=== PATIENT | male | born 1970 | race Caucasian/White ===

== ENCOUNTER 2019-04-25 17:33 | Emergency (ER) | payer SELFPAY ==
--- NOTE | 2019-04-25 19:25 | ED ---
Complex/Multi-Sys Presentation - HPI Summary HPI Summary: 48 year old M presenting to [facility] complains of watery diarrhea and nausea since yesterday. Denies vomiting. The patient rates the pain 5/10 in severity. Symptoms aggravated by nothing. Symptoms alleviated by nothing. Hx C. diff x2, last time being a couple weeks ago, for which he was given vancomycin. Patient states he recently moved to [place] from [place]. States he was referred to [place] for detox treatment at [facility] for hx ETOH. States he has been in detox treatment for 4 days. States that since he has been being seen at [facility], the skin under his eyes have been irritated and burning. States he hasn't taken his medications for 5 days since moving to [place]. PMHx: seizures. - History Of Current Complaint Chief Complaint: EDNauseaVomitDiarrh Time Seen by Provider: 04/25/19 19:18 Hx Obtained From: Patient Onset/Duration: Lasting Days - 1, Still Present Timing: Constant Severity Currently: Moderate - 5/10 Aggravating Factor(s): Nothing Alleviating Factor(s): Nothing Associated Signs And Symptoms: Negative: Vomiting - Allergies/Home Medications Allergies/Adverse Reactions: Allergies Allergy/AdvReac Type Severity Reaction Status Date / Time levetiracetam [From [facility]] Allergy See Comment Verified 04/25/19 17:47 Penicillins Allergy Unknown Verified 04/25/19 17:47 Reaction Details PMH/Surg Hx/FS Hx/Imm Hx Neurological History: Reports: Hx Seizures Psychiatric History: Reports: Hx Substance Abuse - ETOH - Surgical History Surgery Procedure, Year, and Place: bone Infectious Disease History: Yes Infectious Disease History: Reports: Hx Clostridium Difficile Denies: Traveled Outside the [place] in Last 30 Days - Family History Known Family History: Positive: Other - cancer - Social History Alcohol Use: None Alcohol Amount: in detox at [facility] Substance Use Type: Reports: None Smoking Status (MU): Unknown if Ever Smoked Review of Systems Negative: Fever Positive: Diarrhea, Nausea. Negative: Vomiting All Other Systems Reviewed And Are Negative: Yes Physical Exam - Summary Physical Exam Summary: Appearance: Well-appearing, Well-nourished, lying in bed comfortably Skin: Warm, dry, no obvious rash. He has swelling and irritation of his lower lids, worse on the left. Eyes: sclera anicteric, no conjunctival pallor ENT: mucous membranes moist, pharynx appears normal Neck: Supple, nontender Respiratory: Clear to auscultation, no signs of respiratory distress Cardiovascular: Normal S1, S2. No murmurs. Normal distal pulses in tibial and radial bilaterally. Abdomen: Soft, nontender, normal active bowel sounds present Musculoskeletal: Normal, Strength/ROM Intact Neurological: A&Ox3, awake and alert, mentation is normal, speech is fluent and appropriate Psychiatric: affect is normal, does not appear anxious or depressed Triage Information Reviewed: Yes Vital Signs On Initial Exam: Initial Vitals Temp Pulse Resp BP Pulse Ox 97.8 F 74 18 168/114 97 04/25/19 17:44 04/25/19 17:44 04/25/19 17:44 04/25/19 17:44 04/25/19 17:44 Vital Signs Reviewed: Yes Procedures - Sedation Patient Received Moderate/Deep Sedation with Procedure: No Diagnostics - Vital Signs Vital Signs Temp Pulse Resp BP Pulse Ox 04/25/19 17:44 97.8 F 74 18 168/114 97 - Laboratory Lab Statement: Any lab studies that have been ordered have been reviewed, and results considered in the medical decision making process. Re-Evaluation - Re-Evaluation First Eval Re-Evaluation Time: 20:15 Change: Unchanged Comment: patient requesting gabapentin 600 mg PO Complex Multi-Symp Course/Dx Course Of Treatment: 48 year old M with hx C. diff x2 [facility] [place] of watery diarrhea and nausea since yesterday. States he has been in detox treatment for 4 days at [facility] for hx ETOH. States that since he has been being seen at [facility], the skin under his eyes have been irritated and burning. States he hasn't taken his medications for 5 days since moving to [place]. Upon exam, the patient has swelling and irritation of his lower lids, worse on the left. In the ED course, the patient was given Buspar 5 mg PO, Depakote 750 mg PO, Prozac 80 mg PO, Zofran 8 mg PO, Minipress 2 mg PO, and gabapentin 600 mg PO. Patient was unable to provide stool sample while in the ED so we were unable to test his stool for C. diff. Spoke with [facility] staff who states that there is a nurse practitioner at [facility] who should be able to make sure he gets his prescription for his regular medications. Patient will be discharged home with instructions to follow up with nurse practioner at [facility]. Patient was instructed to return to Emergency Department for new or worsening symptoms. Patient understands and is agreeable to this plan. - Diagnoses Provider Diagnoses: Diarrhea Discharge ED - Sign-Out/Discharge Documenting (check all that apply): Patient Departure - Discharge - Discharge Plan Condition: Good Disposition: HOME Patient Education Materials: C Diff (Clostridium Difficile) Infection (ED) Referrals: No Primary Care Phys,NOPCP [Primary Care Provider] - Additional Instructions: [facility] staff tell me there is a nurse practitioner who should be able to see you there and prescribe your regular medications. With respect to the c. diff diarrhea question, until you can provide a stool sample we won't know. The TRANSFER IRON OPERATOR at [facility] should be able to order that for you as well and treat as needed. - Billing Disposition and Condition Condition: GOOD Disposition: Home - Attestation Statements Document Initiated by Duane: Yes Documenting Scribe: Joellen Mistry Provider For Whom Duane is Documenting (Include Credential): Demetrius Mendoza MD Scribe Attestation: Joellen Melendez, scribed for Demetrius Mendoza MD on 04/26/19 at 0201. Scribe Documentation Reviewed: Yes Provider Attestation: The documentation as recorded by the Joellen leslie accurately reflects the service I personally performed and the decisions made by Demetrius stone MD Status of Scribe Document: Viewed
[2019-04-25] MEDS ORDERED: Divalproex ER TAB(*) 250 MG PO ONE (19:46)
[2019-04-25] MEDS ORDERED: FLUoxetine CAP* 20 MG PO ONE (19:46)
[2019-04-25] MEDS ORDERED: Ondansetron ODT TAB* 4 MG SL ONE (19:46)
[2019-04-25] MEDS ORDERED: Prazosin CAP* 1 MG PO ONE (19:48)
[2019-04-25] MEDS ORDERED: busPIRone TAB* 5 MG PO ONE (19:49)
[2019-04-25] MEDS ORDERED: Gabapentin CAP(*) 300 MG PO ONE (20:12)
[2019-04-25 21:22] VITALS: BP 141/86
== END 2019-04-25 21:05 | disposition home or self-care (01) ==
LOC: ED 17:33
DX: R19.7 Diarrhea, unspecified (principal); Z88.0 Allergy status to penicillin; Z88.8 Allergy status to other drugs, medicaments and biological substances
CPT/HCPCS: 99282; A9270-GY